=== PATIENT | female | born 1970 ===

== ENCOUNTER 2021-06-27 10:24 | Inpatient (IN) | payer MEDICAID, OTHER ==
[~2021-06-27] VITALS: Ht 154.9 cm; Wt 76.6 kg
[2021-06-27] MEDS ORDERED: ONDANSETRON 2MG/ML, 2ML ONE (11:52)
[2021-06-27] MEDS ORDERED: MORPHINE SULFATE 4 MG/ML, 1ML ONE (11:52)
[2021-06-27] MEDS: MORPHINE SULFATE 4 MG/ML, 1ML IVPush PRN ×2 (11:56→18:07)
[2021-06-27] MEDS ORDERED: ACETAMINOPHEN 325 MG TABLET PO PRN (12:00)
[2021-06-27] MEDS ORDERED: SENNA/DOCUSATE TABLET PO PRN (12:00)
[2021-06-27] MEDS ORDERED: SODIUM CHLORIDE 0.9% 1,000 ML IV ONE (12:00)
[2021-06-27] MEDS ORDERED: ONDANSETRON 2MG/ML, 2ML IVPush ONE (12:00)
[2021-06-27] MEDS ORDERED: POLYETHYLENE GLYCOL 17 GM PACKET PO PRN (12:00)
[2021-06-27] MEDS: LACTATED RINGERS 1,000 ML IV SCH ×3 (12:06→21:54)
--- NOTE | 2021-06-27 12:06 | NUR ---
PT MEDICATED PER EMAR FOR EPIGASTRIC PAIN, ALL MONITORS IN PLACE. PER EDMD GINA, EKG NOT INDICATED AT THIS TIME FOR EPIGASTRIC PAIN. PT TO BE TRANSPORTED TO FLOOR ONCE REPORT HAS BEEN EXCHANGED WITH FLOOR RN.
[2021-06-27] MEDS ORDERED: LISI1TAB23 PO (12:16)
[2021-06-27] MEDS ORDERED: OMEGA 3 PO (12:16)
[2021-06-27] MEDS ORDERED: GABA300C PO (12:16)
[2021-06-27] MEDS ORDERED: ACET1TAB64 PO (12:16)
[2021-06-27] MEDS ORDERED: IBUP-1223 PO (12:16)
[2021-06-27] MEDS ORDERED: GLIP5TAB10 PO (12:16)
[2021-06-27] MEDS ORDERED: XANAX PO (12:16)
[2021-06-27] MEDS ORDERED: AMIT25TA PO (12:16)
[2021-06-27] MEDS ORDERED: CLONAZEPAM PO (12:16)
[2021-06-27] MEDS ORDERED: ASPI-963 PO (12:17)
[2021-06-27 12:45] VITALS: BP 119/71
[2021-06-27] MEDS: ENOXAPARIN 40 MG/0.4 ML SQ SCH (13:33)
[2021-06-27] MEDS: HYDROcodone/APAP 5/325 TABLET PO PRN ×2 (13:33→20:35)
[2021-06-27] MEDS: INSULIN LISPRO 100 UNITS/ML, PEN SQ-INSULIN SCH ×2 (16:00→20:45)
[2021-06-27 17:57] LABS: MICROSCOPIC AUTO
[2021-06-27 18:07] LABS: AMPHETAMINE SCREEN, URINE Negative (Negative); BARBITURATE SCREEN, URINE Negative (Negative); BENZODIAZEPINE SCREEN, URINE Positive (Negative); CANNABINOID SCREEN, URINE Negative (Negative); COCAINE SCREEN, URINE Negative (Negative); METHADONE SCREEN, URINE Negative (Negative); OPIATE SCREEN, URINE Positive (Negative)
[2021-06-27] MEDS: morphine SULFATE 10 MG/ML, 1ML IVPush PRN ×2 (18:08→21:51)
[2021-06-27] MEDS: ONDANSETRON 2MG/ML, 2ML IVPush PRN (20:33)
[2021-06-27] MEDS ORDERED: FENO145T32 PO (20:43)
[2021-06-27 20:49] VITALS: BP 112/67
[2021-06-27] MEDS ORDERED: GLUCAGON 1 MG IM PRN (22:00)
[2021-06-27] MEDS ORDERED: DEXTROSE 50%, 50ML SYRINGE IVPush PRN (22:00)
[2021-06-28] MEDS: morphine SULFATE 10 MG/ML, 1ML IVPush PRN ×7 (01:27→21:44)
[2021-06-28] MEDS: HYDROcodone/APAP 5/325 TABLET PO PRN ×5 (02:00→20:34)
[2021-06-28 02:09] VITALS: BP 108/52
[2021-06-28] MEDS: LACTATED RINGERS 1,000 ML IV SCH ×5 (03:12→23:10)
[2021-06-28] MEDS: ONDANSETRON 2MG/ML, 2ML IVPush PRN ×3 (04:22→21:43)
[2021-06-28 04:28] LABS: BASOPHILS % (AUTO) 0 % (0-1); EOSINOPHILS % (AUTO) 1 % (1-7); LYMPHOCYTES % (AUTO) 14 % (22-44); MEAN CORPUSCULAR HEMOGLOBIN 29.6 pg (27.0-34.8); MEAN CORPUSCULAR HGB CONC 33.3 g/dL (32.4-35.8); MEAN PLATELET VOLUME 8.3 fL (7.4-10.4); MONOCYTES % (AUTO) 7 % (2-9); NEUTROPHILS % (AUTO) 78 % (42-75); PLATELET COUNT 218 x10^3/uL (130-400); RED BLOOD COUNT 4.06 x10^6/uL (3.82-5.3)
[2021-06-28 04:39] LABS: ALANINE AMINOTRANSFERASE 25 U/L (12-78); ALBUMIN 2.6 g/dL (3.4-5.0); ANION GAP 6 mmol/L (5-15); CALCIUM 7.8 mg/dL (8.5-10.1); CHLORIDE 103 mmol/L (98-107); CREATININE 0.65 mg/dL (0.55-1.02)
[2021-06-28 04:41] LABS: ALKALINE PHOSPHATASE 35 U/L (45-117); BILIRUBIN,TOTAL 1.2 mg/dL (0.2-1.0); TRIGLYCERIDES 128 mg/dL (50-200)
[2021-06-28 06:35] VITALS: BP 100/60
[2021-06-28] MEDS: INSULIN LISPRO 100 UNITS/ML, PEN SQ-INSULIN SCH ×4 (07:00→20:34)
[2021-06-28] MEDS: SODIUM CHLORIDE FLUSH 10ML SYR IVF SCH ×2 (08:34→20:34)
[2021-06-28] MEDS: ENOXAPARIN 40 MG/0.4 ML SQ SCH (11:36)
[2021-06-28 12:15] VITALS: BP 98/58
[2021-06-28] MEDS: ACETAMINOPHEN 500 MG TABLET PO PRN (16:35)
[2021-06-28 19:47] VITALS: BP 121/59
[2021-06-29] MEDS: morphine SULFATE 10 MG/ML, 1ML IVPush PRN ×7 (00:52→22:45)
[2021-06-29 01:34] VITALS: BP 96/60
[2021-06-29] MEDS: ONDANSETRON 2MG/ML, 2ML IVPush PRN (04:44)
[2021-06-29 05:18] LABS: CHLORIDE 100 mmol/L (98-107)
[2021-06-29 05:20] LABS: BASOPHILS % (AUTO) 0 % (0-1); EOSINOPHILS % (AUTO) 1 % (1-7); LYMPHOCYTES % (AUTO) 13 % (22-44); MEAN CORPUSCULAR HEMOGLOBIN 29.2 pg (27.0-34.8); MEAN CORPUSCULAR HGB CONC 32.4 g/dL (32.4-35.8); MEAN PLATELET VOLUME 8.7 fL (7.4-10.4); MONOCYTES % (AUTO) 7 % (2-9); NEUTROPHILS % (AUTO) 78 % (42-75); PLATELET COUNT 204 x10^3/uL (130-400)
[2021-06-29 05:26] LABS: ALANINE AMINOTRANSFERASE 28 U/L (12-78); ALBUMIN 2.6 g/dL (3.4-5.0); ALKALINE PHOSPHATASE 44 U/L (45-117); ANION GAP 4 mmol/L (5-15); BILIRUBIN,TOTAL 0.7 mg/dL (0.2-1.0); CALCIUM 8.4 mg/dL (8.5-10.1); CREATININE 0.64 mg/dL (0.55-1.02); TOTAL PROTEIN 6.4 g/dL (6.4-8.2)
[2021-06-29 06:32] VITALS: BP 124/73
[2021-06-29] MEDS: INSULIN LISPRO 100 UNITS/ML, PEN SQ-INSULIN SCH ×4 (07:08→20:15)
[2021-06-29] MEDS: LACTATED RINGERS 1,000 ML IV SCH (07:12)
[2021-06-29] MEDS: SODIUM CHLORIDE FLUSH 10ML SYR IVF SCH ×2 (08:14→20:15)
[2021-06-29] MEDS: ACETAMINOPHEN 500 MG TABLET PO PRN (08:33)
[2021-06-29] MEDS: ENOXAPARIN 40 MG/0.4 ML SQ SCH (11:35)
[2021-06-29 13:30] VITALS: BP 136/70
[2021-06-29] MEDS: OXYcodone/APAP 5/325MG TABLET PO PRN ×2 (16:22→20:24)
[2021-06-29 18:50] VITALS: BP 108/68
[2021-06-30] MEDS: ONDANSETRON ODT 4 MG PO PRN ×2 (01:13→20:45)
[2021-06-30] MEDS: OXYcodone/APAP 5/325MG TABLET PO PRN ×2 (01:14→07:37)
[2021-06-30 01:16] VITALS: BP 111/69
[2021-06-30] MEDS: morphine SULFATE 10 MG/ML, 1ML IVPush PRN ×2 (03:38→09:40)
[2021-06-30 06:47] VITALS: BP 115/62
[2021-06-30] MEDS: INSULIN LISPRO 100 UNITS/ML, PEN SQ-INSULIN SCH ×4 (07:00→20:39)
[2021-06-30] MEDS: SODIUM CHLORIDE FLUSH 10ML SYR IVF SCH ×2 (09:32→20:42)
[2021-06-30] MEDS ORDERED: LACTATED RINGERS 1,000 ML IV SCH (10:00)
[2021-06-30 10:12] LABS: BASOPHILS % (AUTO) 1 % (0-1); EOSINOPHILS % (AUTO) 2 % (1-7); LYMPHOCYTES % (AUTO) 14 % (22-44); MEAN CORPUSCULAR HEMOGLOBIN 29.9 pg (27.0-34.8); MEAN CORPUSCULAR HGB CONC 33.3 g/dL (32.4-35.8); MEAN PLATELET VOLUME 8.4 fL (7.4-10.4); MONOCYTES % (AUTO) 6 % (2-9); NEUTROPHILS % (AUTO) 78 % (42-75); PLATELET COUNT 221 x10^3/uL (130-400); RED BLOOD COUNT 3.39 x10^6/uL (3.82-5.3); RED CELL DISTRIBUTION WIDTH 13.6 % (9.6-15.2)
[2021-06-30 10:22] LABS: ALBUMIN 2.6 g/dL (3.4-5.0); ANION GAP 6 mmol/L (5-15); CALCIUM 8.2 mg/dL (8.5-10.1); CHLORIDE 102 mmol/L (98-107)
[2021-06-30 10:24] LABS: ALANINE AMINOTRANSFERASE 24 U/L (12-78); ALKALINE PHOSPHATASE 58 U/L (45-117); BILIRUBIN,TOTAL 0.4 mg/dL (0.2-1.0); CREATININE 0.58 mg/dL (0.55-1.02); TOTAL PROTEIN 6.5 g/dL (6.4-8.2)
[2021-06-30] MEDS: ENOXAPARIN 40 MG/0.4 ML SQ SCH (12:32)
[2021-06-30] MEDS: OXYcodone/APAP 7.5/325MG TABLET PO PRN ×3 (12:33→20:42)
[2021-06-30 15:59] VITALS: BP 132/71
[2021-06-30] MEDS: GABAPENTIN 300 MG CAPSULE PO SCH ×2 (16:51→20:41)
[2021-06-30 19:11] VITALS: BP 131/82
[2021-06-30] MEDS ORDERED: AMITRIPTYLINE 25 MG TABLET PO SCH (21:00)
[2021-07-01 01:25] VITALS: BP 122/69
[2021-07-01] MEDS: OXYcodone/APAP 7.5/325MG TABLET PO PRN ×2 (01:30→05:26)
[2021-07-01 05:29] LABS: BASOPHILS % (AUTO) 1 % (0-1); EOSINOPHILS % (AUTO) 3 % (1-7); LYMPHOCYTES % (AUTO) 23 % (22-44); MEAN CORPUSCULAR HGB CONC 33.5 g/dL (32.4-35.8); MEAN PLATELET VOLUME 8.1 fL (7.4-10.4); MONOCYTES % (AUTO) 8 % (2-9); NEUTROPHILS % (AUTO) 65 % (42-75); PLATELET COUNT 269 x10^3/uL (130-400); RED BLOOD COUNT 3.46 x10^6/uL (3.82-5.3); RED CELL DISTRIBUTION WIDTH 13.7 % (9.6-15.2)
[2021-07-01 05:41] LABS: ALBUMIN 2.3 g/dL (3.4-5.0); ANION GAP 6 mmol/L (5-15); CALCIUM 8.2 mg/dL (8.5-10.1); CHLORIDE 103 mmol/L (98-107)
[2021-07-01 05:45] LABS: ALANINE AMINOTRANSFERASE 33 U/L (12-78); ALKALINE PHOSPHATASE 79 U/L (45-117); BILIRUBIN,TOTAL 0.4 mg/dL (0.2-1.0); CREATININE 0.58 mg/dL (0.55-1.02); TOTAL PROTEIN 6.2 g/dL (6.4-8.2)
[2021-07-01 06:27] VITALS: BP 105/67
[2021-07-01] MEDS: INSULIN LISPRO 100 UNITS/ML, PEN SQ-INSULIN SCH (07:00)
[2021-07-01] MEDS: SODIUM CHLORIDE FLUSH 10ML SYR IVF SCH (08:06)
[2021-07-01] MEDS: GABAPENTIN 300 MG CAPSULE PO SCH (08:06)
== END 2021-07-01 10:15 | disposition home or self-care (01) | DRG 282 ==
LOC: ED 11:54 → 4NW 12:47
PROVIDERS: ADMIT Hospitalist; ATTEND Internal Medicine
DX: K85.00 Idiopathic acute pancreatitis without necrosis or infection (principal); E44.0 Moderate protein-calorie malnutrition; R65.10 Systemic inflammatory response syndrome (SIRS) of non-infectious origin without acute organ dysfunction; E11.9 Type 2 diabetes mellitus without complications; I10 Essential (primary) hypertension; F41.1 Generalized anxiety disorder; G47.00 Insomnia, unspecified; G89.29 Other chronic pain; Z96.642 Presence of left artificial hip joint; Z86.711 Personal history of pulmonary embolism; Z86.718 Personal history of other venous thrombosis and embolism; Z68.31 Body mass index [BMI] 31.0-31.9, adult; Z90.710 Acquired absence of both cervix and uterus; Z83.3 Family history of diabetes mellitus; Z82.49 Family history of ischemic heart disease and other diseases of the circulatory system; Z83.6 Family history of other diseases of the respiratory system
CPT/HCPCS: 36415; 80053; 80307; 81001; 82962; 83036; 83690; 84478; 85025; 87086; 96372; 96374; 96375; 99285; G0378; J1650; J2405; Q0162; J2270; J7120